=== PATIENT | male | born 1985 | race Caucasian/White ===

== ENCOUNTER 2023-03-30 18:32 | Emergency (ER) | payer SELFPAY ==
[2023-03-30 18:36] VITALS: BP 135/82; PULSE 79; RESP 18; TEMP 36.9; O2SAT 95; BMI 29.4
[2023-03-30 18:42] VITALS: BP 135/82; PULSE 81; O2SAT 95
--- NOTE | 2023-03-30 18:46 | HMH.EDGENADL ---
Discharge Plan Disposition Patient Disposition: Home, Self-Care Condition: Good Referrals Follow up/Referrals: Humera Nieves MD [Primary Care Provider] - See instructions Activity Restrictions/Add. Instructions Additional Instructions/Restrictions: You were evaluated in the emergency department today. Please make sure that you stay orally hydrated. Rest, ice, and elevate your arm. Follow-up with your primary care provider for reassessment. Return to the emergency department for new or worsening symptoms. Clinical Impressions Clinical Impression: Heat exhaustion, Hypokalemia, IV infiltration Instructions Patient Instructions: DI for Heat Exhaustion and Heat Stroke, DI for Nausea -- Adult Discharge ED Provider: Adenike Mei General Adult HPI General Chief complaint: Nausea/Vomiting/Diarrhea Stated complaint: nausea, vomiting Time Seen by Provider: 03/30/23 18:38 History of Present Illness HPI narrative: This patient is a 37-year-old male with history of prediabetes presenting to the emergency department for evaluation with concern for nausea and vomiting after heat exposure. Patient reports that he was outside in the heat all day working until approximately 3:30 PM. He went inside, had [employer] to eat, and tried drinking a lot of water because he started to feel ill. He became nauseated and had multiple episodes of emesis around 4:30 PM. He had 4 mg of Zofran prior to arrival which stopped his vomiting, however he continues to have some abdominal cramping and fatigue. Given this, he came to the emergency department for further evaluation and management. No concerns noted at this time, such as chest pain, shortness of breath, or other concerns. [facility] Disclaimer: The information contained in this section may have been updated after the patient was seen, as this information can be updated by other users. Social History Smoking Status: Current every day smoker alcohol intake: never current occupational status: employed Travel in the last 8 weeks: None ROS Obtained: Yes All systems reviewed & no additional complaints except as documented 14 point review of systems obtained and negative except as mentioned in HPI. Physical Exam General General appearance: alert and in no apparent distress Head Head exam: atraumatic and normocephalic Eye Eye exam: Present normal appearance, PERRL and EOMI ENT ENT exam: Present normal exam, normal oropharynx and mucous membranes moist Neck Neck exam: Present normal inspection, full ROM and trachea midline; Absent tenderness Chest Chest inspection: Present normal inspection and symmetric chest wall rise; Absent tenderness Respiratory Respiratory exam: Present normal lung sounds bilaterally; Absent respiratory distress, wheezes, stridor or accessory muscle use Cardiovascular Cardiovascular exam: Present regular rate and normal rhythm Abdominal Exam Abdominal exam: Present soft; Absent distention, tenderness or guarding Extremities Exam Extremities exam: Present normal inspection, full ROM and normal capillary refill; Absent tenderness or edema Back Exam Back exam: Present normal inspection and full ROM; Absent tenderness Neurological Exam Neurological exam: Present alert, oriented X3 and CN II-XII intact; Absent motor sensory deficit Psychiatric Psychiatric exam: Present normal affect and normal mood Skin Skin exam: Present warm and dry Medical Decision Making Medical Records Medical records reviewed: Yes I reviewed the patient's medical records. Scott Inquiry Pt receiving controlled substance: No Vital Signs: 03/30/23 18:36 03/30/23 18:42 Temperature 98.4 F Temperature Source Oral Pulse Rate 81 Pulse Rate [Left Radial] 79 Respiratory Rate 18 Blood Pressure 135/82 Blood Pressure [Right Arm] 135/82 Blood Pressure Mean 91 Blood Pressure Mean [Right Arm] 99 Blood Pressure Source [Right Arm] Auto
--- NOTE | 2023-03-30 19:03 | ECG_ITS ---
APPROVED REPORT Exam: Resting ECG HR:75 bpm ECG Measurements Heart Rate 75 AXES AL 159 P 34 QRSd 96 QRS 13 QT 373 T 63 QTc 402 Conclusion SINUS RHYTHM NORMAL ECG INTERPRETATION BASED ON A DEFAULT AGE OF 40 YEARS UNCONFIRMED REPORT Electronically signed by : Ventura Kurtz MD 03/31/2023 20:30:51
[2023-03-30 19:34] LABS: Alanine Aminotransferase 50 U/L (12-78); Albumin Level 4.9 g/dl (3.5-5.0); Albumin/Globulin Ratio 1.8 (1.1-1.8); Alkaline Phosphatase 119 U/L (38-126); Anion Gap 14.4 mEq/L (5-15); Aspartate Amino Transferase 39 U/L (17-59); Bilirubin,Total 0.5 mg/dl (0.2-1.3); Blood Urea Nitrogen 14 mg/dl (9-20); Calcium 9.2 mg/dl (8.4-10.2); Carbon Dioxide 25 mmol/L (22.0-30.0); Chloride 103 mmol/L (98-107); Creatinine Clearance Estimated 177 mL/min (50-200); Estimated Glomerular Filt Rate 94 ml/min (>60); GFR (African American) 114 ML/MIN (>60); Globulin 2.7 g/dL (1.3-3.2); Glucose 111 mg/dl (74-100); Potassium 3.4 mmoL/L (3.5-5.1); Sodium 139 mmol/L (136-145); Total Protein,Serum 7.6 g/dl (6.3-8.2)
[2023-03-30 19:36] LABS: Basophils # 0.1 K/mm3 (0-0.2); Basophils % 0.7 % (0.1-2.0); Eosinophils # 0.4 K/mm3 (0.0-0.4); Eosinophils % 3.7 % (0.1-12.0); Hematocrit 46.2 % (42.0-52.0); Hemoglobin 15.3 g/dL (14.1-18.0); Lymphocytes # 2.4 K/mm3 (0.7-4.5); Lymphocytes % 24.5 % (10-50); Mean Corpuscular HGB Conc 33.2 g/dL (31.8-35.4); Mean Corpuscular Hemoglobin 29.9 pg (27.0-31.2); Mean Corpuscular Volume 90.2 fl (80-94); Mean Platelet Volume 8.5 fl (7.4-10.4); Monocytes # 0.5 K/mm3 (0.1-1.0); Monocytes % 5.4 % (1.7-9.3); Neutrophils # 6.4 K/mm3 (1.8-7.8); Neutrophils % 65.7 % (37.0-80.0); Platelet Count 275 K/mm3 (142-424); Red Blood Count 5.12 M/mm3 (4.60-6.20); Red Cell Distribution Width 13.5 % (11.5-17.5); White Blood Count 9.7 K/mm3 (4.8-10.8)
[2023-03-30 19:51] VITALS: BP 122/84; PULSE 66; RESP 18; TEMP 36.8
== END 2023-03-30 20:02 | disposition home or self-care (01) ==
PROVIDERS: Emergency Provider Emergency Medicine; PCP Family Medicine
DX: T67.5XXA Heat exhaustion, unspecified, initial encounter (principal); E87.6 Hypokalemia; R11.2 Nausea with vomiting, unspecified; F17.200 Nicotine dependence, unspecified, uncomplicated
CPT/HCPCS: 36415; 80053; 85025; 93005; 93041; 96361; 96374; 99284; J2405

== ENCOUNTER 2023-10-16 23:11 | Emergency (ER) | payer BC, SELFPAY ==
--- NOTE | 2023-10-16 23:11 | ECG_ITS ---
APPROVED REPORT Exam: Resting ECG HR:64 bpm ECG Measurements Heart Rate 64 AXES LA 150 P 68 QRSd 98 QRS 52 QT 388 T 70 QTc 398 Conclusion SINUS RHYTHM NORMAL ECG UNCONFIRMED REPORT Electronically signed by : Ventura Kurtz MD 10/17/2023 20:59:04
[2023-10-16 23:12] VITALS: BP 155/89; PULSE 68; RESP 18; TEMP 36.4; O2SAT 97; BMI 27.2
--- NOTE | 2023-10-16 23:27 | XR_ITS ---
PROCEDURE INFORMATION: Exam: XR Chest Exam date and time: 10/16/2023 11:33 PM Age: 37 years old Clinical indication: Pain; Chest pressure; Additional info: Midsternal chest pain, pleuritic TECHNIQUE: Imaging protocol: Radiologic exam of the chest. Views: 2 views. Total images: 2 COMPARISON: No relevant prior studies available. FINDINGS: Tubes, catheters and devices: EKG leads are present. Lungs: Unremarkable. No consolidation. No pulmonary vascular congestion or edema. Pleural spaces: Unremarkable. No pleural effusion. No pneumothorax. Heart/Mediastinum: Unremarkable. No cardiomegaly. No mediastinal widening or hilar enlargement. Bones/joints: Unremarkable. IMPRESSION: No radiographically acute cardiopulmonary process.
[2023-10-16] MEDS: ACETAMINOPHEN 500MG TAB 1000 MG PO (23:31)
[2023-10-16] MEDS: KETOROLAC 30MG/ML VIAL 15 MG IV (23:31)
--- NOTE | 2023-10-16 23:33 | HMH.EDCP ---
Discharge Plan Disposition Patient Disposition: Home, Self-Care Condition: Good Referrals Follow up/Referrals: Provider,Referral, [Primary Care Provider] - See instructions Activity Restrictions/Add. Instructions Additional Instructions/Restrictions: You were evaluated in the emergency department today. Please take Tylenol and ibuprofen at home as needed for pain and symptoms. Follow-up with your primary care provider over the next 3 days for reassessment. Return to the emergency department for new or worsening symptoms. Clinical Impressions Clinical Impression: Chest pain, Pleurisy Instructions Patient Instructions: DI for Atypical Chest Pain, DI for Pleurisy Discharge ED Provider: Adenike Mei HPI General Chief Complaint: Chest Pain Stated Complaint: chest pain Time Seen by Provider: 10/16/23 23:13 Mode of Arrival: Ambulatory Source of Information: Patient and Significant Other Limitations: No Limitations Description of Symptoms (Recalled from ER Triage Doc. by RN): Pt presents with chest pain that started this morning associated with painful inspiration, cough and wheezing. Pt states everyone in household has URI symptoms. History of Present Illness HPI narrative: This patient is a 37-year-old male who denies significant past medical history presenting to the emergency department for evaluation with concern for midsternal pleuritic chest pain. He stated that started this morning when he woke up. No known trauma or injuries. Family members at home have had upper respiratory infection symptoms. He denies any fevers, chills, shortness of breath, abdominal pain, nausea vomiting, changes bowel movements, rashes, or swelling. No history of blood clots or clotting disorders. No recent surgeries or immobilizations. He tried ibuprofen with no improvement. No other concerns noted at this time. Related Data Allergies Allergy/AdvReac Type Severity Reaction Status Date / Time No Known Allergies Allergy Verified 03/30/23 19:52 [facility] Disclaimer: The information contained in this section may have been updated after the patient was seen, as this information can be updated by other users. Social History Smoking Status: Current every day smoker alcohol intake: never current occupational status: employed Travel in the last 8 weeks: None ROS Obtained: Yes All systems reviewed & no additional complaints except as documented Physical Exam General General appearance: alert and in no apparent distress Head Head exam: atraumatic and normocephalic Eye Eye exam: Present normal appearance, PERRL and EOMI ENT ENT exam: Present normal exam, normal oropharynx, mucous membranes moist and normal external ear exam Neck Neck exam: Present normal inspection, full ROM and trachea midline; Absent tenderness Chest Chest inspection: Present normal inspection and symmetric chest wall rise; Absent tenderness Respiratory Respiratory exam: Present normal lung sounds bilaterally; Absent respiratory distress, wheezes, stridor or accessory muscle use Cardiovascular Cardiovascular exam: Present regular rate and normal rhythm Abdominal Exam Abdominal exam: Present soft; Absent distention, tenderness or guarding Extremities Exam Extremities exam: Present normal inspection, full ROM and normal capillary refill; Absent tenderness or edema Back Exam Back exam: Present normal inspection and full ROM; Absent tenderness Neurological Exam Neurological exam: Present alert, oriented X3, CN II-XII intact and normal gait; Absent motor sensory deficit Psychiatric Psychiatric exam: Present normal affect and normal mood Skin Skin exam: Present warm and dry HEART Score HEART Score HEART Score assessment performed?: Yes History (anamnesis): Slightly suspicious ECG: Normal Age: <45 years Risk factors: No known risk factors Troponin: </= normal limit HEART Score: 0 Critical Care Critical Care Time Critical Care Time: No Medical Decision Making Medical Records Medical records reviewed: Yes I reviewed the patient's medical records. Scott Inquiry Pt receiving controlled substance: No Vital Signs Vital Signs: 10/16/23 23:12 10/17/23 00:00 Temperature 97.6 F Temperature Source Oral Pulse Rate 66 Pulse Rate [Left] 68 Respiratory Rate 18 18 Blood Pressure 130/75 Blood Pressure [Right Arm] 155/89 H Blood Pressure Mean [Right Arm] 111 Blood Pressure Source [Right Arm] Automatic Cuff Blood Pressure Position [Right Arm] Sitting 02 Sat by Pulse Oximetry 97 94 L Oxygen Delivery Method Room Air Lab Data Labs: Lab Results 10/16/23 23:18: WBC 8.9, RBC 4.62, Hgb 14.8, Hct 43.0, MCV 93.0, MCH 32.0 H, MCHC 34.5, RDW 13.6, Plt Count 258, MPV 8.3, Neut % (Auto) 49.2, Lymph % (Auto) 39.2, [place] % (Auto) 5.5, Eos % (Auto) 5.2, Baso % (Auto) 0.9, Neut # (Auto) 4.4, Lymph # (Auto) 3.5, [place] # (Auto) 0.5, Eos # (Auto) 0.5 H, Baso # (Auto) 0.1, Sodium 140, Potassium 3.6, Chloride 107, Carbon Dioxide 24, Anion Gap 12.6, BUN 9, Creatinine 0.70, Estimated Creat Clear 211, Estimated GFR 126, Est GFR ( Amer) 153, Glucose 116 H, Calcium 9.1, Total Bilirubin 0.4, AST 41, ALT 47, Alkaline Phosphatase 106, Troponin I < 0.01, Total Protein 7.1, Albumin 4.6, Globulin 2.5, Albumin/Globulin Ratio 1.8 10/16/23 23:50: SARS-CoV-2 (PCR) Not detected, Influenza A Untype (PCR) Not detected, Influenza Type B (PCR) Not detected 10/16/23 23:18 10/16/23 23:18 Response Orders (Tests/Meds): ED MEDICATIONS Discontinued Medications Generic Name Dose Route Start Last Admin Trade Name Freq PRN Reason Stop Dose Admin Acetaminophen 1,000 mg 10/16/23 23:27 10/16/23 23:31 Acetaminophen 500mg Tab PO 10/16/23 23:28 1,000 mg ONCE ONE Administration Ketorolac Tromethamine 15 mg 10/16/23 23:27 10/16/23 23:31 Ketorolac 30mg/Ml Vial IV 10/16/23 23:28 15 mg ONCE ONE Administration ORDERS Category Date Time Status XR chest 2V Stat Exams 10/16/23 23:27 Completed Complete Blood Count Auto Diff Stat Lab 10/16/23 23:18 Completed Comprehensive Metabolic Panel Stat Lab 10/16/23 23:18 Completed Rapid PCR Covid and Flu A/B Stat Lab 10/16/23 23:50 Completed Troponin I Q3H Lab 10/17/23 02:30 Ordered Troponin I Q3H Lab 10/17/23 05:30 Ordered Troponin I Stat Lab 10/16/23 23:18 Completed ECG initial [place] Routine Y 10/16/23 23:11 Completed ECG Data Tracing #1: Attestation: I reviewed this ECG and interpreted as documented below: ECG Narrative: Normal sinus rhythm with a ventricular rate of [address] changes concerning for ischemia. Normal axis and intervals. ECG initial impression date: 10/16/23 ECG initial impression time: 23:13 MDM Narrative Medical Decision Narrative: In summary, this patient is a 37-year-old male presenting to the Emergency Department for evaluation of chest pain. Everyone at home has had a viral upper respiratory infection. Differential diagnoses considered include but are not limited to viral syndrome, pleuritis, pneumonia, ACS, GERD, costochondritis. Ruling out the most morbid conditions drove assessment. On exam, the patient is well-appearing with normal vital signs on cardiac telemetry. Cardiopulmonary exam is normal. He is PERC negative for pulmonary embolus. He does not have tachycardia or EKG changes to suggest pericarditis or myocarditis. Workup included CBC, CMP, troponin, viral swab, chest x-ray, and EKG. He was given IV Toradol and oral Tylenol for symptomatic improvement. I independently interpreted x-ray prior to the radiologist read and noted focal consolidation, pneumothorax, pleural effusion, cardiomegaly, or other concerns. Please see their read for final interpretation. Labs were obtained that demonstrated no acutely concerning abnormalities. Troponin is negative. Given duration of symptoms and the fact that the patient's heart score is low risk, I do not feel that obtaining a second troponin is necessary at this time. I feel he most likely has pleurisy in the setting of viral upper respiratory infection given that everyone at home is sick. He possibly also could have costochondritis. On reassessment, patient had improvement after administration of interventions above. Vitals are normal on cardiac telemetry. Given this, feel that he is appropriate for discharge with instructions for close patient follow-up and supportive management. He was discharged in stable condition after all questions were answered.
[2023-10-16 23:35] LABS: Basophils # 0.1 K/mm3 (0-0.2); Basophils % 0.9 % (0.1-2.0); Eosinophils # 0.5 K/mm3 (0.0-0.4); Eosinophils % 5.2 % (0.1-12.0); Hemoglobin 14.8 g/dL (14.1-18.0); Lymphocytes # 3.5 K/mm3 (0.7-4.5); Lymphocytes % 39.2 % (10-50); Mean Corpuscular HGB Conc 34.5 g/dL (31.8-35.4); Mean Platelet Volume 8.3 fl (7.4-10.4); Monocytes # 0.5 K/mm3 (0.1-1.0); Monocytes % 5.5 % (1.7-9.3); Neutrophils # 4.4 K/mm3 (1.8-7.8); Neutrophils % 49.2 % (37.0-80.0); Platelet Count 258 K/mm3 (142-424); Red Blood Count 4.62 M/mm3 (4.60-6.20); Red Cell Distribution Width 13.6 % (11.5-17.5); White Blood Count 8.9 K/mm3 (4.8-10.8)
[2023-10-16 23:40] LABS: Alanine Aminotransferase 47 U/L (12-78); Albumin Level 4.6 g/dl (3.5-5.0); Albumin/Globulin Ratio 1.8 (1.1-1.8); Alkaline Phosphatase 106 U/L (38-126); Anion Gap 12.6 mEq/L (5-15); Aspartate Amino Transferase 41 U/L (17-59); Bilirubin,Total 0.4 mg/dl (0.2-1.3); Blood Urea Nitrogen 9 mg/dl (9-20); Calcium 9.1 mg/dl (8.4-10.2); Carbon Dioxide 24 mmol/L (22.0-30.0); Chloride 107 mmol/L (98-107); Creatinine Clearance Estimated 211 mL/min (50-200); Estimated Glomerular Filt Rate 126 ml/min (>60); GFR (African American) 153 ML/MIN (>60); Globulin 2.5 g/dL (1.3-3.2); Glucose 116 mg/dl (74-100); Potassium 3.6 mmoL/L (3.5-5.1); Sodium 140 mmol/L (136-145); Total Protein,Serum 7.1 g/dl (6.3-8.2)
--- NOTE | 2023-10-16 23:41 | PC.NURSE ---
patient gone to RAD at this time.
--- NOTE | 2023-10-16 23:47 | PC.NURSE ---
patient back in room at this time.
[2023-10-16 23:51] LABS: Coronavirus 19, PCR Not Detected (NotDetected); Influenza A, PCR Not Detected (NotDetected); Influenza B, PCR Not Detected (NotDetected)
[2023-10-16 23:56] LABS: Troponin I < 0.01 ng/ml (0.00-0.034)
[2023-10-17] VITALS: BP 130/75; PULSE 66; RESP 18; O2SAT 94
--- NOTE | 2023-10-17 00:28 | PC.NURSE ---
in room talking with patient at this time.
[2023-10-17 00:34] VITALS: BP 123/71; PULSE 67; RESP 20; TEMP 37.1; O2SAT 96
== END 2023-10-17 00:39 | disposition home or self-care (01) ==
PROVIDERS: Emergency Provider Emergency Medicine
DX: R07.89 Other chest pain (principal); R09.1 Pleurisy; F17.210 Nicotine dependence, cigarettes, uncomplicated
CPT/HCPCS: 71046; 80053; 84484; 85025; 87636; 93005; 96374; 99284

== ENCOUNTER 2024-01-12 00:33 | Emergency (ER) | payer BC, SELFPAY ==
[2024-01-12 00:36] VITALS: BP 136/95; PULSE 59; RESP 16; TEMP 36.6; O2SAT 99; BMI 27.8
[2024-01-12 00:48] VITALS: BP 125/69; PULSE 64; RESP 17; O2SAT 95
--- NOTE | 2024-01-12 01:08 | CT_ITS ---
PROCEDURE INFORMATION: Exam: CT Neck With Contrast Exam date and time: 01/12/2024 2:08 AM Age: 38 years old Clinical indication: Mass, lump, or swelling in neck; Left and posterior; Additional info: Lt sub occipital mass/adenopathy TECHNIQUE: Imaging protocol: Computed tomography of the neck with contrast. Radiation optimization: All CT scans at this facility use at least one of these dose optimization techniques: automated exposure control; mA and/or kV adjustment per patient size (includes targeted exams where dose is matched to clinical indication); or iterative reconstruction. Contrast material: ISOVUE; Contrast volume: 75 ml; Contrast route: IV; COMPARISON: CR XR CHEST 2V 10/16/2023 11:33 PM FINDINGS: Pharynx: Unremarkable. No significant tonsillar enlargement. Larynx: Unremarkable. Epiglottis is normal. Prevertebral and retropharyngeal spaces: Unremarkable. Salivary glands: Normal. Glands are normal in size. Thyroid: Normal. No enlarged or calcified nodules. Lymph nodes: Unremarkable. No lymphadenopathy. Trachea: Visualized trachea is unremarkable. Lungs: Unremarkable as visualized. Bones/joints: Unremarkable. No acute fracture. Soft tissues: There is a bony protuberance extending from the patient's occiput inferiorly measuring a proximally 12 x 19 x 17 mm. This appears benign. No soft tissue component is noted. No mass or other abnormality is seen. IMPRESSION: Benign-appearing bony protuberance from the patient's occiput.
[2024-01-12 01:27] LABS: Basophils # 0.1 K/mm3 (0-0.2); Basophils % 1.4 % (0.1-2.0); Eosinophils # 0.4 K/mm3 (0.0-0.4); Eosinophils % 5.6 % (0.1-12.0); Hematocrit 44.2 % (42.0-52.0); Hemoglobin 14.7 g/dL (14.1-18.0); Lymphocytes # 3.2 K/mm3 (0.7-4.5); Mean Corpuscular HGB Conc 33.2 g/dL (31.8-35.4); Mean Corpuscular Hemoglobin 31.3 pg (27.0-31.2); Mean Corpuscular Volume 94.4 fl (80-94); Mean Platelet Volume 8.4 fl (7.4-10.4); Monocytes # 0.4 K/mm3 (0.1-1.0); Monocytes % 5.6 % (1.7-9.3); Neutrophils # 3.6 K/mm3 (1.8-7.8); Neutrophils % 46.4 % (37.0-80.0); Platelet Count 237 K/mm3 (142-424); Red Blood Count 4.68 M/mm3 (4.60-6.20); Red Cell Distribution Width 13.5 % (11.5-17.5); White Blood Count 7.8 K/mm3 (4.8-10.8)
[2024-01-12 01:30] VITALS: BP 116/76; PULSE 57; RESP 16; O2SAT 97
[2024-01-12 01:34] LABS: Chloride 105 mmol/L (98-107); Potassium 3.5 mmoL/L (3.5-5.1); Sodium 140 mmol/L (136-145)
[2024-01-12 01:36] LABS: Blood Urea Nitrogen 12 mg/dl (9-20); Creatinine Clearance Estimated 187 mL/min (50-200); Estimated Glomerular Filt Rate 108 ml/min (>60); GFR (African American) 130 ML/MIN (>60)
[2024-01-12 01:37] LABS: Alanine Aminotransferase 52 U/L (12-78); Albumin Level 4.6 g/dl (3.5-5.0); Albumin/Globulin Ratio 1.8 (1.1-1.8); Alkaline Phosphatase 96 U/L (38-126); Anion Gap 11.5 mEq/L (5-15); Aspartate Amino Transferase 43 U/L (17-59); Bilirubin,Total 0.5 mg/dl (0.2-1.3); Calcium 9.4 mg/dl (8.4-10.2); Carbon Dioxide 27 mmol/L (22.0-30.0); Globulin 2.6 g/dL (1.3-3.2); Glucose 103 mg/dl (74-100); Total Protein,Serum 7.2 g/dl (6.3-8.2)
[2024-01-12 01:39] LABS: INR 0.95 (0.9-1.1); Prothrombin Time 10.3 seconds (10.1-12.5)
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
[2024-01-12 02:00] VITALS: BP 116/61; PULSE 52; RESP 18; O2SAT 98
[2024-01-12] MEDS: IOPAMIDOL-370 (76%);100ML BOTTLE 75 ML IV (02:12)
[2024-01-12] MEDS: SODIUM CHLORIDE 0.9% 10ML SYR (RAD ONLY) 10 ML IV (02:13)
[2024-01-12 03:45] VITALS: BP 119/83; PULSE 58; RESP 18; TEMP 36.6; O2SAT 98
== END 2024-01-12 03:46 | disposition home or self-care (01) ==
PROVIDERS: Emergency Provider Emergency Medicine; PCP Nurse Practitioner Family
DX: M54.2 Cervicalgia (principal); R22.1 Localized swelling, mass and lump, neck; R11.0 Nausea; F17.210 Nicotine dependence, cigarettes, uncomplicated
CPT/HCPCS: 70491; 80053; 85025; 85610; 99284; Q9967

== ENCOUNTER 2024-12-18 18:12 | Emergency (ER) | payer SELFPAY ==
[2024-12-18 18:18] VITALS: BP 132/81; PULSE 81; RESP 18; TEMP 36.5; O2SAT 100; BMI 29.6
[2024-12-18 18:27] LABS: Coronavirus 19, PCR Not Detected (NotDetected); Influenza A, PCR Not Detected (NotDetected); Influenza B, PCR Not Detected (NotDetected)
--- NOTE | 2024-12-18 18:49 | ED_ITS ---
<Statement entered by Adenike Mei DO - 12/19/24 00:52> I was consulted by the BRE, and we discussed the complexity of the problems being addressed. I approved the treatment and management plan for this patient's care in the emergency department, thus performing a substantive portion of the medical decision making. Adenike Mei DO Discharge Plan Disposition Patient Disposition: Home, Self-Care Condition: Good Prescriptions Prescriptions: No Action albuterol sulfate 90 mcg/actuation HFA aerosol inhaler 1 inh inhalation QID PRN (Reason: shortness of breath or wheezing) Qty: 6.7 0RF methylprednisolone 4 mg tablets,dose pack See Rx Instructions PO PER PKG DIR Qty: 21 0RF Rx Instructions: PO PER PKG DIR azithromycin [Zithromax Z-Dada] 250 mg tablet See Rx Instructions PO .COMPLEX Qty: 6 0RF Rx Instructions: For 250 mg dose pack: take 500 mg today (day 1), then 250 mg for 4 days (days 2-5) PO benzonatate 100 mg capsule 100 mg PO BID PRN (Reason: cough) Qty: 20 0RF Referrals Follow up/Referrals: Amelie Toro APRN [Primary Care Provider] - See instructions Activity Restrictions/Add. Instructions Additional Instructions/Restrictions: Recommend taking the medications that your PCP sent in today which is a steroid antibiotic and cough suppressants. Also recommend continue taking Tylenol alternating with Motrin. If you have continued new or worsening signs or symptoms follow-up with your PCP or return to the ER as needed. Clinical Impressions Clinical Impression: Acute lower respiratory tract infection Stand Alone Forms Stand Alone Forms: Work/School Release Print Language Print Language: Nicaraguan Discharge ED Provider: Adenike Mei General Adult HPI General Chief complaint: Upper Respiratory Infection Stated complaint: soa,congestion , fever Time Seen by Provider: 12/18/24 18:49 Mode of Arrival: Ambulatory Source of Information: Patient Description of Symptoms (Recalled from ER Triage Doc. by RN): pt presents for evaluation chills, bodyaches, chest congestion x 1 week. History of Present Illness HPI narrative: Patient presents for evaluation of cough congestion shortness of breath x 1 week. Patient reports that he has taken Tylenol and Motrin however they have not been helpful. He actually started running a fever today which is why he came to the emergency department. He saw his PCP as well today who prescribed him antibiotic steroid and a cough medicine but he has yet to pick that up. He was concerned he might have pneumonia and wanted to come in for a chest x-ray as his PCP could not do that. Related Data Previous Rx's ?Medication ?Instructions ?Recorded albuterol sulfate 90 mcg/actuation 1 inh inhalation QID PRN shortness 12/16/24 aerosol inhaler of breath or wheezing #6.7 grams azithromycin 250 mg tablet See Rx Instructions PO .COMPLEX #6 12/16/24 (Zithromax Z-Dada) tabs benzonatate 100 mg capsule 100 mg PO BID PRN cough #20 caps 12/16/24 methylprednisolone 4 mg tablets in See Rx Instructions PO PER PKG DIR 12/16/24 a dose pack #21 tabs Allergies Allergy/AdvReac Type Severity Reaction Status Date / Time No Known Allergies Allergy Verified 12/18/24 18:27 [facility] Disclaimer: The information contained in this section may have been updated after the patient was seen, as this information can be updated by other users. Surgical History (Updated 12/16/24 @ 18:27 by Denise Fagan RN) History of appendectomy Social History Smoking Status: Current every day smoker alcohol intake: never current occupational status: employed Travel in the last 8 weeks: None Have you lived/traveled outside [place] in past 30 days?: No Contact w/someone who lives/traveled outside US past 30 days?: No Exposure to someone with infectious disease in past 14 days?: No Do you have a fever (greater than 100.4 F or 38 C)?: No Have you tested positive for COVID-19: No Exposed to someone with COVID-19 in past 14 days?: No Do you have a sore throat?: No Do you have a cough?: No Do you have any weakness?: No Do you have any diarrhea?: No Are you experiencing any unusual bleeding?: No Do you have any muscle aches/pain?: No Do you have any abdominal pain?: No Are you experiencing loss of taste or smell?: No ROS Obtained: Yes Systems reviewed as appropriate & no additional complaints except as documented Physical Exam General General appearance: alert and in no apparent distress Respiratory Respiratory exam: Present normal lung sounds bilaterally Cardiovascular Cardiovascular exam: Present regular rate Neurological Exam Neurological exam: Present alert and oriented X3 Medical Decision Making Medical Records Medical records reviewed: Yes I reviewed the patient's medical records. Screening: Per USPSTF and CDC recommendations, given the prevalence of disease in our region, it is our hospital?s policy to screen for HIV and viral Hepatitis for all patients aged 18 and over and those with ongoing risk factors. Scott Inquiry Pt receiving controlled substance: No Vital Signs: 12/18/24 18:18 12/18/24 21:34 Temperature 97.7 F 97.7 F Temperature Source Oral Oral Pulse Rate 74 Pulse Rate [Right] 81 Respiratory Rate 18 18 Blood Pressure 122/59 L Blood Pressure [Right Arm] 132/81 Blood Pressure Mean [Right Arm] 98 Blood Pressure Source Automatic Cuff Blood Pressure Source [Right Arm] Automatic Cuff Blood Pressure Position Sitting Blood Pressure Position [Right Arm] Sitting 02 Sat by Pulse Oximetry 100 Oxygen Delivery Method Room Air Lab Data Lab results reviewed: Yes I reviewed the patient's lab results. Lab Results 12/18/24 18:21: SARS-CoV-2 (PCR) Not detected, Influenza A Untype (PCR) Not detected, Influenza Type B (PCR) Not detected 12/18/24 19:08: WBC 8.2, RBC 5.07, Hgb 16.1, Hct 45.6, MCV 89.9, MCH 31.8 H, MCHC 35.3, RDW 12.6, Plt Count 309, MPV 10.0, Neut % (Auto) 51.4, Lymph % (Auto) 34.8, [place] % (Auto) 8.3, Eos % (Auto) 4.2, Baso % (Auto) 0.9, Neut # (Auto) 4.2, Lymph # (Auto) 2.8, [place] # (Auto) 0.7, Eos # (Auto) 0.3, Baso # (Auto) 0.1, D- Dimer 0.57 H, Sodium 141, Potassium 4.3, Chloride 103, Carbon Dioxide 26, Anion Gap 16.3 H, BUN 7 L, Creatinine 0.70, Estimated Creat Clear 225, Estimated GFR 125, Est GFR ( Amer) 151, Glucose 95, Calcium 9.2, Total Bilirubin 0.5, AST 38, ALT 58, Alkaline Phosphatase 91, Total Protein 7.7, Albumin 4.5, Globulin 3.2, Albumin/Globulin Ratio 1.4 12/18/24 19:08 12/18/24 19:08 Orders (Tests/Meds): ED MEDICATIONS Discontinued Medications Generic Name Dose Route Start Last Admin Trade Name Stephanie PRN Reason Stop Dose Admin Albuterol/Ipratropium 3 ml 12/18/24 19:00 12/18/24 19:22 Ipratropium/Albuterol 3 Ml Neb IH 12/18/24 19:01 3 ml ONCE ONE Administration Dexamethasone Sodium Phosphate 10 mg 12/18/24 19:00 12/18/24 19:20 Dexamethasone 4mg/Ml 5ml Mdv IV 12/18/24 19:01 10 mg ONCE ONE Administration Sodium Chloride 1,000 mls @ 999 mls/hr 12/18/24 19:00 12/18/24 19:21 Sod Chlor 0.9% 1000ml Bag IV 12/18/24 20:00 999 mls/hr .Q1H1M ONE Administration Ketorolac Tromethamine 15 mg 12/18/24 19:00 12/18/24 19:20 Ketorolac 30mg/Ml Vial IV 12/18/24 19:01 15 mg ONCE ONE Administration ORDERS Category Date Time Status Chest XR 2 view (NOT portable) [XR chest 2V] Stat Exams 12/18/24 19:00 Completed CBC w/Auto Diff [Complete Blood Count Auto Diff] Stat Lab 12/18/24 19:08 Completed CMP [Comprehensive Metabolic Panel] Stat Lab 12/18/24 19:08 Completed D-Dimer Stat Lab 12/18/24 19:08 Completed Full Resp Panel w/COVID ([facility]) Routine Lab 12/18/24 18:21 Received Rapid PCR Covid and Flu A/B Stat Lab 12/18/24 18:21 Completed Medical Decision Narrative: In summary patient is a 39-year-old male who presents to the emergency department for evaluation of cough congestion shortness of breath for 1 week. Patient is hemodynamically stable with a blood pressure 132/81 pulse 81 normal sinus rhythm on the bedside monitor breathing 18 times a minute satting at 100% on room air upon arrival, febrile at 97.7. Physical exam is remarkable for clear breath sounds with no increased work of breathing or adventitious sounds or accessory muscle use. Differential diagnosis includes upper or lower respiratory tract infection versus COPD versus pneumonia. Initial workup will be conducted with hematologic labs COVID and flu swabs plain film chest x-ray. Initial interventions include Tylenol Toradol DuoNeb Decadron. Initial workup reviewed by me and his hematologic labs are nonactionable COVID and flu swabs are negative and my informal interpretation of his imaging shows no acute processes. Upon repeat evaluation patient reported improvement after DuoNeb and Decadron.. Given this patient is appropriate for discharge with instruction to continue the prescription regimen his PCP provided and close follow-up if he has continued new or worsening signs or symptoms or return to the ER as needed. Critical Care Critical Care Time Critical Care Time: No
--- NOTE | 2024-12-18 19:00 | XR_ITS ---
PROCEDURE INFORMATION: Exam: XR Chest Exam date and time: 12/18/2024 7:51 PM Age: 39 years old Clinical indication: Cough and shortness of breath; Additional info: Cough congestion dyspnea for a week TECHNIQUE: Imaging protocol: Radiologic exam of the chest. Views: 2 views. COMPARISON: CR XR CHEST 2V 10/16/2023 11:33 PM FINDINGS: Lungs: Unremarkable. No consolidation. Pleural spaces: Unremarkable. No pleural effusion. No pneumothorax. Heart/Mediastinum: Unremarkable. No cardiomegaly. Bones/joints: Unremarkable. IMPRESSION: No acute findings.
[2024-12-18] MEDS: DEXAMETHASONE 4MG/ML 5ML MDV 10 MG IV (19:20)
[2024-12-18] MEDS: KETOROLAC 30MG/ML VIAL 15 MG IV (19:20)
[2024-12-18] MEDS: 0.9 % SODIUM CHLORIDE 1000ML 1,000 ML 999 ML IV (19:21)
[2024-12-18] MEDS: IPRATROPIUM/ALBUTEROL 3 ML NEB IH (19:22)
[2024-12-18 19:25] LABS: Basophils # 0.1 K/mm3 (0-0.2); Basophils % 0.9 % (0.1-2.0); Eosinophils # 0.3 K/mm3 (0.0-0.4); Eosinophils % 4.2 % (0.1-12.0); Hematocrit 45.6 % (42.0-52.0); Hemoglobin 16.1 g/dL (14.1-18.0); Lymphocytes # 2.8 K/mm3 (0.7-4.5); Lymphocytes % 34.8 % (10-50); Mean Corpuscular HGB Conc 35.3 g/dL (31.8-35.4); Mean Corpuscular Hemoglobin 31.8 pg (27.0-31.2); Mean Corpuscular Volume 89.9 fl (80-94); Monocytes # 0.7 K/mm3 (0.1-1.0); Monocytes % 8.3 % (1.7-9.3); Neutrophils # 4.2 K/mm3 (1.8-7.8); Neutrophils % 51.4 % (37.0-80.0); Nucleated Red Blood Cells # 0 10^3/uL; Nucleated Red Blood Cells % 0 %; Platelet Count 309 K/mm3 (142-424); Red Blood Count 5.07 M/mm3 (4.60-6.20); Red Cell Distribution Width 12.6 % (11.5-17.5); Red Cell Distribution Width-SD 41.3 fL; White Blood Count 8.2 K/mm3 (4.8-10.8)
[2024-12-18 19:33] LABS: Alanine Aminotransferase 58 U/L (12-78); Albumin Level 4.5 g/dl (3.5-5.0); Albumin/Globulin Ratio 1.4 (1.1-1.8); Alkaline Phosphatase 91 U/L (38-126); Anion Gap 16.3 mEq/L (5-15); Aspartate Amino Transferase 38 U/L (17-59); Bilirubin,Total 0.5 mg/dl (0.2-1.3); Blood Urea Nitrogen 7 mg/dl (9-20); Calcium 9.2 mg/dl (8.4-10.2); Carbon Dioxide 26 mmol/L (22.0-30.0); Chloride 103 mmol/L (98-107); Creatinine Clearance Estimated 225 mL/min (50-200); Estimated Glomerular Filt Rate 125 ml/min (>60); GFR (African American) 151 ML/MIN (>60); Globulin 3.2 g/dL (1.3-3.2); Glucose 95 mg/dl (74-100); Potassium 4.3 mmoL/L (3.5-5.1); Sodium 141 mmol/L (136-145); Total Protein,Serum 7.7 g/dl (6.3-8.2)
[2024-12-18 19:37] LABS: D-Dimer 0.57 ug/mL (0.0-0.5)
[2024-12-18 21:02] LABS: Adenovirus,PCR Not Detected (NotDetected); Bordetella Pertussis Not Detected (NotDetected); Chlamydophila Pneumoniae, PCR Not Detected (NotDetected); Coronavirus 19, PCR Not Detected (NotDetected); Coronavirus 229E Not Detected (NotDetected); Coronavirus NL63 Not Detected (NotDetected); Coronavirus OC43 Not Detected (NotDetected); Coronovirus HKU1,PCR Not Detected (NotDetected); Human Metapneumovirus Not Detected (NotDetected); Influenza A, PCR Not Detected (NotDetected); Influenza AH1, 2009 Not Detected (NotDetected); Influenza AH1, PCR Not Detected (NotDetected); Influenza AH3,PCR Not Detected (NotDetected); Influenza B, PCR Not Detected (NotDetected); Mycoplasma Pneumoniae, PCR Not Detected (NotDetected); Parainfluenza 1, PCR Not Detected (NotDetected); Parainfluenza 2, PCR Not Detected (NotDetected); Parainfluenza 3, PCR Not Detected (NotDetected); Parainfluenza 4, PCR Not Detected (NotDetected); Respiratory Syncytial Virus Not Detected (NotDetected); Rhinovirus/Enterovirus Not Detected (NotDetected)
[2024-12-18 21:34] VITALS: BP 122/59; PULSE 74; RESP 18; TEMP 36.5; O2SAT 100
== END 2024-12-18 21:35 | disposition home or self-care (01) ==
PROVIDERS: Physician Assistant; Emergency Provider Emergency Medicine; PCP Nurse Practitioner Family
DX: R06.02 Shortness of breath (principal); R50.9 Fever, unspecified; J22 Unspecified acute lower respiratory infection
CPT/HCPCS: 71046; 80053; 85025; 85378; 87633; 87636; 96361; 96374; 96375; 99284; J1100; J1885; J7030

== ENCOUNTER 2025-07-23 04:44 | Emergency (ER) | payer SELFPAY ==
[2025-07-23 04:46] VITALS: BP 136/90; PULSE 64; RESP 16; TEMP 36.9; O2SAT 95; BMI 29.6
--- OUTSIDE RECORDS SUMMARY | 2025-07-23 04:59 | XMS_ITS | Clinical Summary ---
Author Organization 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 Phone Unknown, Unknown Primary Care Provider Unavailab le Allergies No known active allergies Medications No known medications Surgical History Surgery Date Site/Laterality Comments APPENDECTOMY Social History Tobacco Use Types Packs/Day Years Used Date Smoking Tobacco: Every Day Cigarettes Smokeless Tobacco: Never Alcohol Use Standard Drinks/Week Comments Yes 0 (1 standard drink = 0.6 oz pur e alcohol) rare Sex and Gender Information Value Date Recorded Sex Assigned at Not on file Legal Sex Male 2:16 AM EDT Gender Identity Not on file Sexual Orientation Not on file Last Filed Vital Signs Vital Sign Reading Time Taken Comments Blood Pressure 151/86 10/05/2021 2:42 PM EST Pulse 95 10/05/2021 2:33 PM EST Temperature 36.1 C (97 F) 10/05/2021 2:36 PM EST Respiratory Rate 16 10/05/2021 2:33 PM EST Oxygen Saturation 98% 10/05/2021 2:33 PM EST Inhaled Oxygen Concentration - - Weight 108.9 kg (240 lb) 10/05/2021 2:33 PM EST Height 195.6 cm (6' 5 ) 10/05/2021 2:33 PM EST Body Mass Index 28.46 10/05/2021 2:33 PM EST Plan of Treatment Health Maintenance Due Date Last Done Comments Annual Wellness Exam 12/12/1987 DTaP/TDaP/Td (1 - Tdap) 12/12/2003 Hepatitis B Vaccine (1 of 3 - 19+ 3-dose series) 12/12/2003 COVID-19 Vaccine (2024-2 6 season) 2025 Influenza Vaccine (#1) 2025 Meningococcal B Vaccine Aged Out No l onger eligible based on patient's age to complete this topic Pneumococcal Vaccine 0-49 Aged Out No longer eligible based on patient's age to complete this topic Insurance ANTHEM PPO ANTHEM PPO Care Teams Drywall Hanger Relationship Specialty Start Date End Date Unknown, Unknown PCP - General 02/10/10
[2025-07-23] MEDS: FLUORESCEIN SODIUM 1MG STRIP 1 MG OP (05:02)
[2025-07-23] MEDS: ERYTHROMYCIN BASE 1 GM OINT...G. OP (05:02)
[2025-07-23] MEDS: TETRACAINE 0.5% OPTH SOL 15ML OP (05:04)
[2025-07-23] MEDS: KETOROLAC 30MG/ML VIAL 30 MG IM (05:06)
[2025-07-23 05:07] VITALS: BP 130/82; PULSE 67; RESP 18; TEMP 36.8; O2SAT 98
--- NOTE | 2025-07-23 06:50 | [facility].EDGENADL ---
Discharge Plan Disposition Patient Disposition: Home, Self-Care Condition: Good Prescriptions Prescriptions: No Action No Known Home Medications Referrals Follow up/Referrals: Amelie Toro APRN [Primary Care Provider, Medical] - See instructions Activity Restrictions/Add. Instructions Additional Instructions/Restrictions: You were evaluated in the ER and are believed to be appropriate for discharge at this time. Use the provided erythromycin ointment as directed. Apply half-inch strip into each eye 4 times daily for the next week. You can also use lubricating eyedrops. Stay in a dark room and avoid light exposure for the next 2 to 3 days to reduce symptoms. Take ibuprofen or Tylenol as needed for pain, do not exceed the recommended dose on the bottle. Drink water and eat small snack each time you take these medications to avoid side effects. Follow-up with your eye doctor for reevaluation. Return to the ER with any new, worsening, or otherwise concerning symptoms. Clinical Impressions Clinical Impression: UV keratitis Stand Alone Forms Stand Alone Forms: Work/School Release Print Language Print Language: Latvian Discharge ED Provider: Wilfrido Dillard General Adult HPI General Chief complaint: Eye Problems Stated complaint: flash burn - eyes Time Seen by Provider: 07/23/25 04:45 Mode of Arrival: Ambulatory Source of Information: Patient Description of Symptoms (Recalled from ER Triage Doc. 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 Pt reports 9/10 pain that he states feels like sand paper in my eyes. History of Present Illness HPI narrative: Otherwise healthy 39-year-old male presents to the ER for concerns of flash burn. 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 He states he started having burning and sandpaper sensation in his eyes that has gotten progressively worse. No medications prior to arrival. He states he has had flash burn in the past and it felt similar to this but this time it is worse. States eyes are too painful to open but when he does vision seems slightly blurry. No other complaints or concerns. Related Data Home Medications ?Medication ?Instructions ?Recorded ?Confirmed No Known Home Medications 02/24/25 02/24/25 Allergies Allergy/AdvReac Type Severity Reaction Status Date / Time No Known Allergies Allergy Verified 02/24/25 18:58 [facility] Disclaimer: The information contained in this section may have been updated after the patient was seen, as this information can be updated by other users. Surgical History History of appendectomy Social History Smoking Status: Current every day smoker alcohol intake: never current occupational status: employed Travel in the last 8 weeks?: None ROS Obtained: Yes Systems reviewed as appropriate & no additional complaints except as documented Per HPI Physical Exam General General appearance: alert Comment: Uncomfortable, holding washcloth over his eyes Head Head exam: atraumatic and normocephalic Eye Eye exam: Present PERRL, EOMI, conjunctival injection (Bilateral) and other (Deshpande lamp exam with superficial punctate uptake on both corneas, scattered. No evidence of foreign body. Negative Brittney sign); Absent scleral icterus Expanded Eye Exam Visual acuity (R) = 20/: 70 Visual acuity (L) = 20/: 70 With correction: No IOP (R) in mmH IOP (L) in mmH IOP measured with: [employer] (icare) ENT ENT exam: Present normal oropharynx and mucous membranes moist Neck Neck exam: Present normal inspection and full ROM Chest Chest inspection: Present symmetric chest wall rise Respiratory Respiratory exam: Absent respiratory distress or stridor Cardiovascular Cardiovascular exam: Present regular rate and normal rhythm Extremities Exam Extremities exam: Present full ROM and normal capillary refill Neurological Exam Neurological exam: Present alert, oriented X3 and other; Absent motor sensory deficit Psychiatric Psychiatric exam: Present normal affect and normal mood Skin Skin exam: Present warm and dry Medical Decision Making Medical Records Medical records reviewed: Yes I reviewed the patient's medical records. Screening: Per USPSTF and CDC recommendations, given the prevalence of disease in our region, it is our hospital?s policy to screen for HIV and viral Hepatitis for all patients aged 18 and over and those with ongoing risk factors. Scott Inquiry Pt receiving controlled substance: No Vital Signs: 07/23/25 04:46 07/23/25 05:07 Temperature 98.4 F 98.2 F Temperature Source Oral Oral Pulse Rate 67 Pulse Rate [Left] 64 Respiratory Rate 16 18 Blood Pressure 130/82 Blood Pressure [Right Arm] 136/90 Blood Pressure Mean [Right Arm] 105 Blood Pressure Source Automatic Cuff Blood Pressure Source [Right Arm] Automatic Cuff 02 Sat by Pulse Oximetry 95 Oxygen Delivery Method Room Air Room Air Orders (Tests/Meds): ED MEDICATIONS Discontinued Medications Generic Name Dose Route Start Last Admin Trade Name Stephanie PRN Reason Stop Dose Admin Erythromycin 1 gm 07/23/25 04:57 07/23/25 05:02 Erythromycin Base 1 Gm Oint...G. OP 07/23/25 04:58 1 gm ONCE ONE Administration Fluorescein Sodium 1 mg 07/23/25 04:57 07/23/25 05:02 Fluorescein Sodium 1mg Strip OP 07/23/25 04:58 1 mg ONCE ONE Administration Ibuprofen 800 mg 07/23/25 04:57 07/23/25 05:04 Ibuprofen 800 Mg Tablet PO 07/23/25 04:58 Not Given ONCE ONE Ketorolac Tromethamine 30 mg 07/23/25 05:04 07/23/25 05:06 Ketorolac 30mg/Ml Vial IM 07/23/25 05:05 30 mg ONCE ONE Administration Tetracaine HCl 0 ml 07/23/25 04:57 07/23/25 05:04 Tetracaine 0.5% Opth Sheron 15ml OP 07/23/25 04:58 15 ml ONCE ONE Administration Medical Decision Narrative: In summary, 39-year-old male presents to the ER concern for flash burn of both eyes after welding. Initial evaluation patient has pain in both eyes with conjunctival injection, visual acuity 20/70 in each eye, normal intraocular pressures, fluorescein exam with punctate uptake consistent with UV keratitis, remainder of exam benign. Differential diagnosis included but is not limited to UV keratitis, considered foreign body, corneal ulcer, corneal abrasion as well. Exam is consistent with UV keratitis. I initially ordered ibuprofen but patient requested Toradol which was administered. I had used tetracaine and fluorescein for Deshpande lamp exam. Erythromycin applied to both eyes for lubrication. Patient was given the erythromycin ointment for home use and instructions on use. He was given instructions on continued symptomatic monitoring and management, follow-up, and return precautions for the ER. He and at bedside indicated understanding and the patient was discharged in stable condition. Critical Care Critical Care Time Critical Care Time: No
== END 2025-07-23 05:12 | disposition home or self-care (01) ==
PROVIDERS: Emergency Provider Emergency Medicine; PCP Nurse Practitioner Family
DX: H16.133 Photokeratitis, bilateral (principal); H57.13 Ocular pain, bilateral; F17.210 Nicotine dependence, cigarettes, uncomplicated; W89.0XXA Exposure to welding light (arc), initial encounter
CPT/HCPCS: 96372; 99283; J1885